=== PATIENT | female | born 1935 | race Caucasian/White ===

== ENCOUNTER → 2018-01-08 13:06 | Outpatient (CLI) | payer MEDICARE, MEDICAID, SELFPAY ==
[2018-01-08 14:14] LABS: Basophils % 0.6 % (0.1-2.0); Eosinophils # 0.2 K/mm3 (0.0-0.4); Eosinophils % 2.9 % (0.1-12.0); Hematocrit 37.9 % (37.0-47.0); Hemoglobin 12.4 g/dL (12.2-16.2); Lymphocytes # 2.7 K/mm3 (0.7-4.5); Lymphocytes % 34.5 K/mm3 (10-50); Mean Corpuscular HGB Conc 32.9 g/dL (31.8-35.4); Mean Corpuscular Volume 88.4 fl (81-99); Mean Platelet Volume 7.4 fl (7.4-10.4); Monocytes # 0.6 K/mm3 (0.1-1.0); Monocytes % 7.9 % (1.7-9.3); Neutrophils # 4.2 K/mm3 (1.8-7.8); Neutrophils % 54.2 % (37.0-80.0); Platelet Count 367 K/mm3 (142-424); Red Blood Count 4.29 M/mm3 (4.20-5.40); Red Cell Distribution Width 13.2 % (11.5-17.5); White Blood Count 7.8 K/mm3 (4.8-10.8)
[2018-01-08 20:52] LABS: Alanine Aminotransferase 15 U/L (12-78); Albumin Level 3.8 gm/dL (3.4-5.0); Albumin/Globulin Ratio 1.2 (1.1-1.8); Alkaline Phosphatase 59 U/L (46-116); Anion Gap 6.1 mEq/L (5-15); Bilirubin,Total 0.3 mg/dL (0.2-1.0); Blood Urea Nitrogen 12 mg/dL (7-18); Calcium 8.9 mg/dL (8.5-10.1); Carbon Dioxide 31 mmol/L (21.0-32.0); Chloride 98 mmol/L (98-107); Creatinine,Serum 0.89 mg/dL (0.55-1.02); Estimated Glomerular Filt Rate 61 ml/min (>60); GFR (African American) 74 ML/MIN (>60); Globulin 3.3 gm/dl (1.3-3.2); Glucose 99 mg/dL (74-106); Sodium 131 mmol/L (136-145); Total Protein,Serum 7.1 gm/dL (6.4-8.2)
[2018-01-08 20:59] LABS: Aspartate Amino Transferase 15 U/L (15-37); Potassium 4.1 mmoL/L (3.5-5.1)
== END ==
PROVIDERS: PCP Internal Medicine; Visit Provider Internal Medicine Cardiovascular Disease
DX: I50.9 Heart failure, unspecified (principal)
CPT/HCPCS: 36415; 80053; 83880; 85025

== ENCOUNTER → 2018-08-29 08:03 | Outpatient (CLI) | payer MEDICARE, MEDICAID, SELFPAY ==
--- NOTE | 2018-08-29 08:15 | XR_ITS ---
XR ankle LT min 3V HISTORY: ITS.REASON: BILAT ANKLE AND FOOT PAIN ORDERING PHYSICIAN: Rajinder Martinez PATIENT AGE: 83 years Comparison: None FINDINGS: No fracture or dislocation. No lytic or blastic change. There is normal mineralization.. The joint spaces are well-preserved. No significant degenerative/arthritic changes. No erosive changes evident. IMPRESSION: Negative ankle, no acute finding
--- NOTE | 2018-08-29 08:15 | XR_ITS ---
XR ankle RT min 3V HISTORY: ITS.REASON: BILAT ANKLE AND FOOT PAIN ORDERING PHYSICIAN: Rajinder Martinez PATIENT AGE: 83 years Comparison: None FINDINGS: No fracture or dislocation. No lytic or blastic change. There is normal mineralization.. The joint spaces are well-preserved. No significant degenerative/arthritic changes. No erosive changes evident. IMPRESSION: Negative ankle, no acute finding
--- NOTE | 2018-08-29 08:15 | XR_ITS ---
XR foot LT min 3V HISTORY: ITS.REASON: BILAT ANKLE AND FOOT PAIN ORDERING PHYSICIAN: Rajinder Martinez PATIENT AGE: 83 years COMPARISON: None FINDINGS: No fracture or dislocation. Decreased density is present involving the neck of the talus with poor definition of the bony cortex which represent a lytic lesion of the anterior neck of the talus. There is low bone density. This could be a function of osteopenia. CT or MRI may be of further value. There is pes planus. IMPRESSION: Possible lytic lesion of the neck of the talus. Consider CT or MRI for further evaluation otherwise negative
--- NOTE | 2018-08-29 08:15 | XR_ITS ---
XR foot RT min 3V HISTORY: ITS.REASON: BILAT ANKLE AND FOOT PAIN ORDERING PHYSICIAN: Rajinder Martinez PATIENT AGE: 83 years COMPARISON: None FINDINGS: No fracture or dislocation. No lytic or blastic change. There is normal mineralization.. The joint spaces are well-preserved. No significant degenerative/arthritic changes. No erosive changes evident. IMPRESSION: Negative, no acute finding
== END ==
PROVIDERS: PCP Internal Medicine; Visit Provider Internal Medicine
DX: M79.672 Pain in left foot (principal); M79.671 Pain in right foot; M25.572 Pain in left ankle and joints of left foot; M25.571 Pain in right ankle and joints of right foot
CPT/HCPCS: 73610; 73630

== ENCOUNTER → 2018-09-11 13:56 | Outpatient (CLI) | payer MEDICARE, MEDICAID, SELFPAY ==
--- NOTE | 2018-09-11 14:06 | CT_ITS ---
CT foot LT wo con INDICATION: Left foot pain, abnormal radiograph with possible lytic lesion of the talus ITS.REASON: LT FOOT PAIN ORDERING PHYSICIAN: Rajinder Martinez PATIENT AGE: 83 years COMPARISON: None TECHNIQUE: Axial images are obtained without contrast. Sagittal and coronal reformatted images are reviewed as well. All CT scans at the facility use one or more dose reduction, viz: automated exposure control, ma/kV adjustment per patient size (including targeted exams where dose is matched to indication, i.e. head), or iterative reconstruction technique. FINDINGS: Previous radiograph suggesting an area of Y cysts along the neck of the talus anteriorly. There is diffuse patchy decreased density all of the tarsal bones as well as the distal tibia and fibula with a few scattered focal areas of decreased intramedullary density and decreased density in the subcortical regions of the distal tibia and fibula. Focal decreased subcortical density is also noted involving the anterior neck of the talus in the lateral aspect of the talus corresponding to the radiographic abnormality. This however appears to be more of a diffuse process as opposed to a focal solitary abnormality. No soft tissue masses. No acute fracture or dislocation. There is diffuse prominence of the bone trabecula. There is mild edema both medially and laterally at the ankle and hindfoot. IMPRESSION: Diffuse patchy low bone density is well scattered areas of subcortical lucency. This is consistent with diffuse osteopenia/osteoporosis. Differential diagnosis would include complex regional pain syndrome/reflex sympathetic dystrophy and multiple myeloma. Three-phase bone scan may better evaluate for possibility of complex regional pain syndrome if clinically desired
== END ==
PROVIDERS: PCP Internal Medicine; Visit Provider Internal Medicine
DX: M79.672 Pain in left foot (principal)
CPT/HCPCS: 73700

== ENCOUNTER → 2018-09-19 08:46 | Outpatient (CLI) | payer MEDICARE, MEDICAID, SELFPAY ==
--- NOTE | 2018-09-19 08:53 | XR_ITS ---
XR DEXA axial skeleton HISTORY: ITS.REASON: OSTEOPOROSIS ORDERING PHYSICIAN: Rajinder Martinez PATIENT AGE: 83 years COMPARISON: None FINDINGS: The BMD measured at the left femoral neck is 0.767 g/cm squared with a T score of -1.9. This is considered Osteopenic according to the World Health Organization criteria. Fracture risk is Moderate. Treatment is advised. IMPRESSION: Osteopenia with moderate fracture risk. Treatment is advised. Recommend follow-up exam September 2020
== END ==
PROVIDERS: PCP Internal Medicine; Visit Provider Internal Medicine
DX: M81.0 Age-related osteoporosis without current pathological fracture (principal)
CPT/HCPCS: 77080

== ENCOUNTER 2018-10-21 09:40 | Outpatient (CLI) | payer MEDICARE, MEDICAID, SELFPAY ==
[2018-10-21 09:40] VITALS: BMI 26.9
[2018-10-21 10:07] LABS: Albumin Level 3.5 gm/dL (3.4-5.0); Calcium 8.7 mg/dL (8.5-10.1); Creatinine Clearance Estimated 49 mL/min (50-200); Creatinine,Serum 0.96 mg/dL (0.55-1.02); Estimated Glomerular Filt Rate 56 ml/min (>60); GFR (African American) 67 ML/MIN (>60)
[2018-10-21 10:33] VITALS: BP 122/51; PULSE 51; RESP 18; TEMP 36.4; O2SAT 96
[2018-10-21 10:55] VITALS: BP 119/60; PULSE 54; RESP 18; O2SAT 97
== END 2018-10-21 10:55 | disposition home or self-care (01) ==
LOC: INF 09:40
PROVIDERS: Visit Provider Internal Medicine
DX: M81.0 Age-related osteoporosis without current pathological fracture (principal)
CPT/HCPCS: 82040; 82310; 82565; 96374; J3489

== ENCOUNTER → 2018-12-25 11:16 | Outpatient (CLI) | payer MEDICARE, MEDICAID, SELFPAY ==
--- NOTE | 2018-12-25 11:24 | XR_ITS ---
PROCEDURE: XR MULTIPLE SPINE 6+V Mom CLINICAL INDICATION: CERVICALGIA, LUMBAGO WITH SCIATICA COMPARISON: No exams were available for comparison FINDINGS: Cervical spine: AP lateral oblique open-mouth views of the cervical spine show multilevel cervical spondylosis with degenerative disc disease at C3-C4 C4-C5 C5-C6 and C6-C7. Multilevel facet hypertrophy with sclerosis. Left foraminal narrowing at C5-C6 and C6-C7. No acute fracture or dislocation. Lumbar spine: Degenerate disc disease T11-T12, T12-L1, L1-L2, and L2-L3 as well as L4-L5. 3 mm anterolisthesis L4 on L5. Facet arthritic changes L4-L5 and S1. No fracture or dislocation. Incidental vascular calcifications. IMPRESSION: Degenerative changes of the cervical and lumbar spine as described above Dictated by: Sulaiman Nina MD 12/25/2018 18:32 Signed by: <Electronically signed by Sulaiman Nina MD in [facility]> 12/25/2018 18:32
== END ==
PROVIDERS: PCP Internal Medicine; Visit Provider Internal Medicine
DX: M54.2 Cervicalgia (principal); M54.41 Lumbago with sciatica, right side
CPT/HCPCS: 72084

== ENCOUNTER 2019-10-31 11:21 | Emergency (ER) | payer MEDICARE, OTHER, SELFPAY ==
[2019-10-31 11:23] VITALS: BP 157/55; PULSE 62; RESP 18; O2SAT 94; BMI 30.7
--- NOTE | 2019-10-31 11:38 | CT_ITS ---
PROCEDURE: CT CERVICAL SPINE WO CON CLINICAL INDICATION: pain COMPARISON: No exams were available for comparison TECHNIQUE: Axial images obtained with sagittal and coronal reformats. All CT scans at the facility use one or more dose reduction, viz: automated exposure control, ma/kV adjustment per patient size (including targeted exams where dose is matched to indication, i.e. head), or iterative reconstruction technique. Axial spiral CT scanning performed of the cervical spine beginning at the base of the skull and continuing to the upper T-spine. 3-D multiplanar reconstruction with 3-D manipulation of volumetric data set in image rendering was completed by the radiologist and/or technologist with the supervision of the radiologist on independent workstation. FINDINGS: No fracture nor subluxation is evident. Normal prevertebral soft tissues. There is normal curvature and alignment. There is generalized osteopenia. Mild multilevel disc space narrowing is seen. The spinal canal is normal in size throughout. There is no significant neural foraminal narrowing on either side. There is no abnormal disc protrusion. IMPRESSION: Mild multilevel degenerate changes of the cervical spine not unexpected for the patient's age Dictated by: Dr. Garth Ford MD 10/31/2019 12:[address] Garth Ford MD in [facility] 10/31/2019 12:24
--- NOTE | 2019-10-31 11:38 | CT_ITS ---
PROCEDURE: CT HEAD/BRAIN W CON CLINICAL INDICATION: Head and neck pain COMPARISON: [facility] CT HEAD W/O CONTRAST from 01/06/2015 TECHNIQUE: IV Contrast: 100ML OPITRAY 320 Axial images obtained. All CT scans at the facility use one or more dose reduction, viz: automated exposure control, ma/kV adjustment per patient size (including targeted exams where dose is matched to indication, i.e. head), or iterative reconstruction technique. FINDINGS: No midline shift, mass effect, intracranial hemorrhage, hydrocephalus, or extra-axial fluid collection is evident. There is mild ventriculomegaly. Sylvian fissures and cortical sulci are mildly prominent. There are periventricular hypodensities consistent with chronic ischemic white matter changes. The calvarium has an unremarkable appearance. The mastoids are clear bilaterally and both internal auditory canals appear normal. IMPRESSION: Findings of age-appropriate cortical atrophy and mild chronic ischemic white matter changes, no acute intracranial pathology noted Dictated by: Dr. Garth Ford MD 10/31/2019 12:[address] Garth Ford MD in [facility] 10/31/2019 12:18
[2019-10-31 11:47] LABS: Basophils % 0.6 % (0.1-2.0); Eosinophils # 0.2 K/mm3 (0.0-0.4); Eosinophils % 2.7 % (0.1-12.0); Hematocrit 35.2 % (37.0-47.0); Hemoglobin 11.7 g/dL (12.2-16.2); Lymphocytes # 1.9 K/mm3 (0.7-4.5); Lymphocytes % 33.8 % (10-50); Mean Corpuscular HGB Conc 33.4 g/dL (31.8-35.4); Mean Corpuscular Hemoglobin 30.2 pg (27.0-31.2); Mean Corpuscular Volume 90.4 fl (81-99); Mean Platelet Volume 8.8 fl (7.4-10.4); Monocytes # 0.5 K/mm3 (0.1-1.0); Monocytes % 8.6 % (1.7-9.3); Neutrophils % 54.3 % (37.0-80.0); Platelet Count 278 K/mm3 (142-424); Red Blood Count 3.89 M/mm3 (4.20-5.40); Red Cell Distribution Width 13.4 % (11.5-17.5); White Blood Count 5.5 K/mm3 (4.8-10.8)
[2019-10-31 11:48] VITALS: BP 157/55; PULSE 54; O2SAT 94
--- NOTE | 2019-10-31 11:51 | HMH.EDNECK ---
ED Disposition Clinical Impression: Neck pain on right side, Cervical spondylosis Disposition: Home, Self-Care Condition on Discharge: Good Instructions: DI for Neck Pain Additional Instructions: use meds and see pcp for follow up Prescriptions: predniSONE [Prednisone 20mg Tab] 20 mg PO BID #10 tab Prescription Printed Acetaminophen with Codeine [Tylenol with Codeine #3 tablet] 1 tab PO TID PRN #10 tab PRN Reason: Moderate To Severe Pain Prescription Printed Referrals: Rajinder Martinez [Primary Care Provider] - - Critical Care Critical Care Time: No Attestation: On 10/31/19, the high probability of a clinically significant, sudden or life threatening deterioration of the following system(s) required my full and direct attention, intervention and personal management. The time I documented below is in addition to time spent performing reported procedures but includes the following listed in this critical care notation. Medical Decision Making - Medical Records Medical records reviewed: Yes: I reviewed the patient's medical records. - Ruben Inquiry Pt receiving controlled substance: No Vital Signs: 10/31/19 11:23 10/31/19 11:48 10/31/19 11:53 Pulse Rate [Radial] 62 54 L 52 L Respiratory Rate 18 Blood Pressure [Right Arm] 157/55 H 157/55 H 130/52 L Blood Pressure Mean [Right Arm] 89 89 78 Blood Pressure Source [Right Arm] Automatic Cuff Automatic Cuff Automatic Cuff Blood Pressure Position [Right Arm] Sitting Sitting Sitting 02 Sat by Pulse Oximetry 94 L 94 L 95 Oxygen Delivery Method Room Air Room Air Room Air 10/31/19 12:32 Pulse Rate [Radial] 51 L Respiratory Rate Blood Pressure [Right Arm] 139/65 Blood Pressure Mean [Right Arm] 89 Blood Pressure Source [Right Arm] Automatic Cuff Blood Pressure Position [Right Arm] Sitting 02 Sat by Pulse Oximetry 96 Oxygen Delivery Method Room Air - Lab Data Lab results reviewed: Yes: I reviewed the patient's lab results. Lab Results 10/31/19 11:43: WBC 5.5, RBC 3.89 L, Hgb 11.7 L, Hct 35.2 L, MCV 90.4, MCH 30.2, MCHC 33.4, RDW 13.4, Plt Count 278, MPV 8.8, Neut % (Auto) 54.3, Lymph % (Auto) 33.8, Garza % (Auto) 8.6, Eos % (Auto) 2.7, Baso % (Auto) 0.6, Neut # (Auto) 3.0, Lymph # (Auto) 1.9, Garza # (Auto) 0.5, Eos # (Auto) 0.2, Baso # (Auto) 0.0 10/31/19 11:43: Sodium 134 L, Potassium 4.1, Chloride 100, Carbon Dioxide 30, Anion Gap 8.1, BUN 14, Creatinine 0.90, Estimated Creat Clear 48, Estimated GFR 60, Est GFR ( Amer) 72, Glucose 118 H, Calcium 8.5, Total Bilirubin 0.4, AST 23, ALT 12, Alkaline Phosphatase 41, Total Protein 6.8, Albumin 3.9, Globulin 2.9, Albumin/Globulin Ratio 1.3 10/31/19 11:43: ESR 31 H Result diagrams: 10/31/19 11:43 10/31/19 11:43 Orders (Tests/Meds): ED MEDICATIONS Generic Name Dose Route Start Last Admin Trade Name Carmina PRN Reason Stop Dose Admin Ketorolac Tromethamine 30 mg 10/31/19 12:49 Toradol 30mg/Ml Vial IV 10/31/19 12:50 ONCE ONE Methylprednisolone Sodium Succinate 125 mg 10/31/19 12:49 Solu-Medrol 125mg/2ml Vial IV 10/31/19 12:50 ONCE ONE - CT Data CT Scan: Head, C-Spine Time Received: 12:[address] Reviewed: Yes: I have viewed the radiologist's interpretation Preliminary Findings: Abnormal (see report ) Neck Pain/Injury HPI - General Chief Complaint: Headache Stated Complaint: RIGHT SIDE HEAD ACHE AND NECK PAIN Time Seen by Provider: 10/31/19 11:40 Mode of Arrival: Ambulatory Source of Information: Patient, Relative, Medical Record Limitations: No Limitations Description of Symptoms (Recalled from ER Triage Doc. by RN): Complaint of right sided neck and head pain. States this has been going on for 2 months and she has seen Dr. Martinez - History of Present Illness HPI Narrative: atraumatic rt sided neck pain - over the last few months w/o fever and no rash MD complaint: neck pain Onset (ago): week(s) Place: home Radiation: right lateral Severity: moderate
[2019-10-31 11:53] VITALS: BP 130/52; PULSE 52; O2SAT 95
[2019-10-31 11:53] LABS: Chloride 100 mmol/L (98-107); Potassium 4.1 mmoL/L (3.5-5.1); Sodium 134 mmol/L (136-145)
[2019-10-31 11:56] LABS: Alanine Aminotransferase 12 U/L (12-78); Albumin Level 3.9 g/dl (3.5-5.0); Albumin/Globulin Ratio 1.3 (1.1-1.8); Alkaline Phosphatase 41 U/L (38-126); Anion Gap 8.1 mEq/L (5-15); Aspartate Amino Transferase 23 U/L (14-36); Bilirubin,Total 0.4 mg/dl (0.2-1.3); Blood Urea Nitrogen 14 mg/dl (7-17); Calcium 8.5 mg/dl (8.4-10.2); Carbon Dioxide 30 mmol/L (22.0-30.0); Creatinine Clearance Estimated 48 mL/min (50-200); Estimated Glomerular Filt Rate 60 ml/min (>60); GFR (African American) 72 ML/MIN (>60); Globulin 2.9 g/dL (1.3-3.2); Glucose 118 mg/dl (74-100); Total Protein,Serum 6.8 g/dl (6.3-8.2)
--- NOTE | 2019-10-31 12:00 | PC.NURSE ---
PT to rad
[2019-10-31 12:10] LABS: Erythrocyte Sedimentation Rate 31 mm/hr (0-30)
[2019-10-31 12:32] VITALS: BP 139/65; PULSE 51; O2SAT 96
[2019-10-31 13:06] VITALS: BP 128/51; PULSE 52; O2SAT 96
[2019-10-31 13:11] VITALS: BP 128/51; PULSE 52; RESP 18; TEMP 36.8; O2SAT 96
== END 2019-10-31 13:14 | disposition home or self-care (01) ==
PROVIDERS: Emergency Medicine; Emergency Provider Family Medicine; PCP Internal Medicine
DX: M47.812 Spondylosis without myelopathy or radiculopathy, cervical region (principal); M54.2 Cervicalgia; Z79.899 Other long term (current) drug therapy; Z88.1 Allergy status to other antibiotic agents; Z88.8 Allergy status to other drugs, medicaments and biological substances; Z88.0 Allergy status to penicillin
CPT/HCPCS: 70460; 72125; 80053; 85025; 85651; 96374; 96375; 99284

== ENCOUNTER → 2019-11-04 10:38 | Outpatient (CLI) | payer MEDICARE, OTHER, SELFPAY ==
--- NOTE | 2019-11-04 10:43 | CA_ITS ---
APPROVED REPORT Supervisor Instrument Repair: Francesca Hart RVT Laterality: Bilateral Study Quality: Good Indications: Dizziness and Vertigo Risk Factors Hypertension: Hyperlipidemia Smoking Doppler Spectral Velocity Analysis ECA (R) 109.00/8.20 cm/s ECA (L) 116.30/11.80 cm/s dICA (R) 95.00/20.50 cm/s dICA (L) 102.70/26.40 cm/s Deborah (R) 91.00/21.40 cm/s Deborah (L) 83.70/25.00 cm/s pICA (R) 79.20/21.80 cm/s pICA (L) 68.10/15.60 cm/s dCCA (R) 64.20/11.10 cm/s dCCA (L) 80.90/15.00 cm/s pCCA (R) 91.20/10.30 cm/s pCCA (L) 108.70/19.80 cm/s Vert (R) -47.50/ cm/s Vert (L) 87.20/19.10 cm/s ICA/CCA 1.48 ICA/CCA 1.27 Findings Study suggests less than 20% stenosis of the bilateral internal cartoid arteries. Antegrade flow seen in the left vertebral artery. Retrograde flow seen right vertebral artery. Conclusion No increased velocities to suggest hemodynamically significant stenosis in either internal carotid artery. Electronically signed by : Sulaiman Nina MD 11/06/2019 15:00:06
== END ==
PROVIDERS: PCP Internal Medicine; Visit Provider Internal Medicine
DX: R42 Dizziness and giddiness (principal); R51 Headache
CPT/HCPCS: 93880

== ENCOUNTER → 2019-12-20 09:47 | Outpatient (CLI) | payer MEDICARE, OTHER, SELFPAY | PROVIDERS: PCP Internal Medicine; Visit Provider Internal Medicine | DX: R42 Dizziness and giddiness (principal); R55 Syncope and collapse | CPT/HCPCS: 93225; 93226 ==

== ENCOUNTER → 2019-12-24 13:52 | Outpatient (CLI) | payer MEDICARE, OTHER, SELFPAY ==
--- NOTE | 2019-12-24 13:55 | CA_ITS ---
APPROVED REPORT EXAM: Comprehensive 2D, Doppler, and color-flow Echocardiogram Psychiatric Mental Health Nurse: Leana Hanley RDCS Ht: 5 ft 1 in Wt: 151lbs BSA: 1.68 BP: 110/68 mmHg Indications: SYNCOPE,CAD,HTN 2D Dimensions LVOT 1.39 cm (M/F) 1.5-2.5 M-Mode Dimensions RVDd 2.32 cm (0.9-2.6) LVDd 5.59 cm (3.5-5.7) LVDs 4.48 cm (3.5-5.7) IVSd 0.72 cm (0.6-1.1) PWd 0.68 cm (0.6-1.1) EF (Teich) 40.20% FS 19.90% EDV (Teich) 153.00 mL ESV (Teich) 91.50 mL LV Diastology E/A Ratio 0.65 Mitral Valve MV A Velocity 72.00 (40-130 cm/s) Left Ventricle Left atrium is mildly enlarged, left ventricle is normal size, mild concentric left ventricular hypertrophy, visually estimated ejection fraction 55% with no regional wall motion abnormality, grade 1 diastolic dysfunction seen without tissue Doppler evidence of raise left atrial pressure. Right Ventricle Right atrium and right ventricle are normal size and contractility. Aortic Valve Aortic valve is thickened and calcified leaflet chordae display good mobility, there is no aortic stenosis or aortic insufficiency. Mitral Valve Mitral valve leaflets are minimally thickened, there is mild mitral regurgitation. Tricuspid Valve Tricuspid valve is grossly normal, there is mild tricuspid regurgitation. Pulmonic Valve Pulmonic valve is poorly visualized. Great Vessels Aortic root is normal size. Pericardium No significant pericardial effusion noted. Conclusion 1. Mildly enlarged left atrium, normal left ventricular size, mild concentric left ventricular hypertrophy, visually estimated ejection fraction 55% with no regional wall motion abnormality, grade 1 diastolic dysfunction seen without tissue Doppler evidence of raise left atrial pressure. 2. Mild mitral and tricuspid regurgitation. 3. No significant pericardial effusion noted. Electronically signed by : Bart Jaeger, 12/25/2019 15:06:12
== END ==
PROVIDERS: PCP Internal Medicine; Visit Provider Internal Medicine
DX: R55 Syncope and collapse (principal); R42 Dizziness and giddiness
CPT/HCPCS: 93306

== ENCOUNTER → 2020-05-18 10:54 | Outpatient (CLI) | payer MEDICARE, OTHER, SELFPAY ==
--- NOTE | 2020-05-18 11:01 | CT_ITS ---
PROCEDURE: CT HEAD/BRAIN WO CON CLINICAL INDICATION: VERTIGO X2 WKS, NAUSEA, HEADACHE COMPARISON: CT CT HEAD/BRAIN W CON from 10/31/2019 TECHNIQUE: Axial images obtained. All CT scans at the facility use one or more dose reduction, viz: automated exposure control, ma/kV adjustment per patient size (including targeted exams where dose is matched to indication, i.e. head), or iterative reconstruction technique. FINDINGS: No midline shift, mass effect, intracranial hemorrhage, hydrocephalus, or extra-axial fluid collection is evident. There is generalized atrophy with hypoattenuation of the periventricular white matter consistent with microangiopathic changes. The ventricles are slightly prominent but may be due to underlying volume loss/atrophy overall not significantly changed. The calvarium has an unremarkable appearance. No mastoid effusion. No sinus air-fluid level. IMPRESSION: No acute intracranial finding Dictated by: Sulaiman Nina MD 05/18/2020 11:59 Sulaiman Nina MD in [facility] 05/18/2020 11:59
== END ==
PROVIDERS: PCP Internal Medicine; Visit Provider Internal Medicine
DX: R42 Dizziness and giddiness (principal); R11.0 Nausea; R51.9 Headache, unspecified
CPT/HCPCS: 70450

== ENCOUNTER → 2020-05-28 10:34 | Outpatient (CLI) | payer MEDICARE, OTHER, SELFPAY ==
[2020-05-28 11:00] LABS: Anion Gap 9.5 mEq/L (5-15); Blood Urea Nitrogen 27 mg/dl (7-17); Calcium 9.6 mg/dl (8.4-10.2); Carbon Dioxide 35 mmol/L (22.0-30.0); Chloride 99 mmol/L (98-107); Estimated Glomerular Filt Rate 53 ml/min (>60); GFR (African American) 64 ML/MIN (>60); Glucose 95 mg/dl (74-100); Potassium 4.5 mmoL/L (3.5-5.1); Sodium 139 mmol/L (136-145)
== END ==
PROVIDERS: Visit Provider Internal Medicine
DX: E87.1 Hypo-osmolality and hyponatremia (principal)
CPT/HCPCS: 80048

== ENCOUNTER 2020-05-30 06:19 | Emergency (ER) | payer MEDICARE, OTHER, SELFPAY ==
[2020-05-30 06:20] VITALS: BP 205/84; PULSE 71; RESP 16; TEMP 37.1; O2SAT 95; BMI 26.6
[2020-05-30 06:27] VITALS: BMI 26.5
--- NOTE | 2020-05-30 06:28 | CT_ITS ---
PROCEDURE: CT THORACIC SPINE WO CON Referring Doctor: Raymond Shay Patient Age:85Y CLINICAL HISTORY: back pain,no injury COMPARISON: [facility] CT CHEST W/O CONTRAST from 04/09/2017 TECHNIQUE: Axial images obtained with sagittal and coronal reformats. All CT scans at the facility use one or more dose reduction, viz: automated exposure control, ma/kV adjustment per patient size (including targeted exams where dose is matched to indication, i.e. head), or iterative reconstruction technique. FINDINGS: No acute fracture but no lesion. Diffuse demineralization. Early degenerative changes T-spine with some disc space narrowing at several levels: There is subtle disc space narrowing with mild sclerotic changes about the disc at mid thoracic spine this is of noted mainly at T8-9 disc and to lesser degree T6/7, T7/8. Minimal facet arthropathy at the lower T-spine otherwise noted . Some degenerative changes are actually more evident at the lower C-spine manifest by facet arthropathy, hypertrophy lower C-spine and mild cervical spondylosis C5-C6 Minimal Schmorl's node inferior endplate T9, T11, T12; and superior endplate T11. 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 Also note appearance is unchanged since 2017 CT chest No destructive or metastatic osseous lesions seen at spine or ribs adjacent to the spine. Again incidentally note left hilar mass with generous mediastinal adenopathy of compatible with developing lung neoplasm -See CT chest for this detailed discussion regarding these findings. IMPRESSION: No acute fracture or findings thoracic spine. No osseous lesions. No osseous metastatic disease evident to the thoracic spine Diffuse demineralization . Mild degenerative changes T-spine. Mediastinal adenopathy with prominent left hilar mass-this is further described on CT chest report Dictated by: Ronak Sarmiento MD 05/30/2020 21:31 Ronak Sarmiento MD in [place] 05/30/2020 21:31
--- NOTE | 2020-05-30 06:28 | CT_ITS ---
PROCEDURE: CT LUMBAR SPINE WO CON Referring Doctor: Raymond Shay Patient Age:85Y CLINICAL HISTORY: back pain,no injury COMPARISON: CT ABDPELW CT ABD PELVIS W/ CONTRAST from 01/23/[address] ABDOMEN PELVIS WO CON from 05/30/2020 TECHNIQUE: No IV contrast Helical axial images obtained with sagittal and coronal reformats. All CT scans at the facility use one or more dose reduction, viz: automated exposure control, ma/kV adjustment per patient size (including targeted exams where dose is matched to indication, i.e. head), or iterative reconstruction technique. FINDINGS: . no acute fracture findings but no focal destructive process or lesion of no osseous metastatic disease identified. Other are developing degenerative changes lumbar spine.:. L5/S1 disc intact with scant central disc bulge.. A generous facet hypertrophy-arthropathy L4/5. Prominent facet hypertrophy with mild, trace degenerative anterior listhesis of L4 on L5. 2.5 mm. Disc spaces fairly well maintained with only slight narrowing posteriorly L3/4. Mild disc space narrowing posteriorly.. Foraminal disc bulge encroach upon both foramen. Mild facet how arthropathy.. Of moderate bilateral foraminal encroachment from above features. The L2/3. Degenerative disc space narrowing degenerative retrolisthesis of L2 on L3, nearly 4 mm. Diffuse disc bulge. Mild facet hypertrophy. The combination these features yields a borderline/mild spinal stenosis L1/2. Disc space narrowing posteriorly but disc intact with no significant bulge. At T12/L1 and T11/12-disc intact with only scant narrowing.. The foramen widely patent No perispinal mass. Left adrenal nodule again noted of for the most part measuring fat density in of basically stable since 2017 and thus of may merely be a nonfunctioning nodulebut will require follow-up pelvic in this patient. It measures up to 17.5 mm Left renal cyst again observed measuring nearly the the 3.5 cm. There was present in 2016 IMPRESSION: Lumbar spine. No acute fracture or findings. No evidence of metastatic disease Degenerative changes lumbar spine as detailed in text:. . L2/3 most evident disc space narrowing at L2/3-with mild degenerative retrolisthesis along with disc bulge. Together features the yields borderline-age mild spinal stenosis and moderate bilateral foraminal encroachment. . L4/5. Mild disc bulge most evident towards left foramen along with the mild degenerative listhesis due the prominent facet hypertrophy. Combination of features yields borderline spinal stenosis. ... L3/4 foraminal disc bulge with moderate bilateral foraminal encroachment Dictated by: Ronak Sarmiento MD 05/30/2020 10:51 Ronak Sarmiento MD in [place] 05/30/2020 10:51
--- NOTE | 2020-05-30 06:28 | XR_ITS ---
PROCEDURE: XR CHEST 2V Referring Doctor: Raymond Shay Patient Age:85Y CLINICAL HISTORY: back pain, sometimes in shoulder blades COMPARISON: CR CXR1 CHEST-PORTABLE from 09/13/2012 CR CXR CHEST(2 VIEWS-NOT PORTABLE) from 12/21/2013 CR CXR1 CHEST-PORTABLE from 01/23/[address] [facility] [address] CHEST W/O CONTRAST from 04/09/[address] CHEST WO CON from 05/30/2020 FINDINGS: PA and lateral chest performed and compared to January 2016 chest film. On today's study we see enlargement and increased density left rigo with lobulated mass extending laterally from the left rigo into the left mid lung. 3.5 ovoid masses seen at the left mid lung associated with this left hilar mass. Just inferior to this is a 3 point 2 cm ovoid density which the reflects associated lesion or metastatic deposit. On lateral view there is also a just over 3 cm mass anterior to the left rigo. Right lung blunting right CP angle the the which likely reflects some minor chronic changes with similar appearance 2013. The There is mediastinal adenopathy with a the enlarged a node or mass in the region the azygos as well as fullness right paratracheal region reflecting adenopathy here. The The right rigo appears satisfactory. Chest wall appears satisfactory T-spine with mild degenerative changes but no obvious lesions but the IMPRESSION: Left hilar mass with associated masses left mid lung. . Associated mediastinal adenopathy also noted The CT warranted to further evaluate this apparent lung neoplasm. Dictated by: Ronak Sarmiento MD 05/30/2020 16:35 Ronak Sarmiento MD in [facility] 05/30/2020 16:35
--- NOTE | 2020-05-30 06:28 | CT_ITS ---
Procedure: CT ABDOMEN PELVIS WO CON Referring Doctor: Raymond Shay Patient Age:85Y CLINICAL INDICATION: back pain,no injury Left adrenal nodule measuring up to 17 mm COMPARISON: CT ABDPELW CT ABD PELVIS W/ CONTRAST from 01/23/[address] [address] CHEST W/O CONTRAST from 04/09/[address] LUMBAR SPINE WO CON from 05/30/2020 TECHNIQUE: Axial images obtained with sagittal and coronal reformats. All CT scans at the facility use one or more dose reduction, viz: automated exposure control, ma/kV adjustment per patient size (including targeted exams where dose is matched to indication, i.e. head), or iterative reconstruction technique. FINDINGS: Lower thorax: No acute finding. Linear scarring with slightly nodular component medially most likely reflects area of nodular scarring. Less likely metastatic disease from lung cancer evident more superiorly as discussed on CT chest report. ABDOMEN: Liver: Multiple common numerous low-density lesions within the liver on this noncontrast study compatible with multiple metastatic foci. One of the larger areas seen within the left lobe the measures up to 22 mm.. Numerous areas seen elsewhere throughout the right lobe, left lobe and junction of right and left lobe. Gallbladder: Nondistended. No radio opaque stones. Pancreas: Unremarkable with no masses o. No cyst or the the inflammatory changes Spleen: unremarkable normal size granulomatous calcifications LEFT ADRENAL nodule measures up to 17.5 mm x 15 mm. It continues to measure low-density for the most part (10hu) and has been present since 2016 exam with no significant progression or enlargement. However given the chest abnormalities distal warrants ongoing follow-up on to watch for change right adrenal.-stable unremarkable ---- tract --- Kidneys/ureters: . Right kidney unremarkable Left kidney-3.5 cm cyst at posterior midportion left kidney is been present since 2016 with no significant change-only perhaps 2 mm larger since 2016. Atherosclerotic calcification noted just anterior to this cyst Both ureters unremarkable PELVIS: hysterectomy. Uterus removed. No adnexal masses. No free fluid pelvis Urinary bladder. No stones evident. Mild diffuse thickening the bladder wall could reflect cystitis.. The the -GI tract--no acute findings Small sliding hiatal hernia more evident previously studies . Stomach upper normal wall thickness at the stomach appear stable most likely reflecting lack of distension. Small bowel: Nondistended. No obvious mass or thickening. Scattered air-fluid levels within nondilated small bowel. Large bowel: No significant findings [id number] stool throughout the colon most evident at right colon. Appendix: No evidence of appendicitis, but appendicolith measuring 3 mm transverse 5 mm length is noted midportion appendix, coronal image 31. Peritoneum: No abnormal fluid collections. No obvious inflammatory changes. No free air. Lymph nodes: No enlarged lymph nodes apparent. Vasculature: Diffuse calcification aorta and iliacs. No aneurysm.: No retroperitoneal adenopathy or findings Bones: No acute fracture no focal lesions; no discrete metastatic lesions.. V RC nodes a heterogeneous appearance to the hips and iliac bones but more likely this reflects some aging and degenerative changes or possibly Paget's rather than metastatic disease. Particularly since there is a similar pattern seen on January 2019 CT Degenerative changes at hips and spine. Mild dextroscoliosis lumbar spine. IMPRESSION: 1..Innumerable low-density liver metastatic lesions evident--from the patient's presumptive lung carcinoma 2.. Mild diffuse wall thickening urinary bladder. Davi
--- NOTE | 2020-05-30 06:38 | PC.NURSE ---
urine sent to lab
[2020-05-30 06:43] LABS: Microscopic, Urine URINE MICROSCOPIC (MICROSCOPIC)
[2020-05-30 06:47] LABS: Appearance,Urine CLEAR (Clear); Bilirubin,Urine Negative (Negative); Blood, Urine Negative (Negative); Color,Urine YELLOW (Yellow); Glucose,Urine (UA) Negative (Negative); Ketones,Urine Negative (Negative); Leukocyte Esterase,Urine TRACE (Negative); Nitrate,Urine Negative (Negative); Protein,Urine Negative (Negative); Urobilinogen,Urine 0.2 EU/dl (0.2)
[2020-05-30 06:53] LABS: Basophils # 0.1 K/mm3 (0-0.2); Basophils % 0.5 % (0.1-2.0); Eosinophils # 0.3 K/mm3 (0.0-0.4); Eosinophils % 2.2 % (0.1-12.0); Hematocrit 40.9 % (37.0-47.0); Hemoglobin 13.1 g/dL (12.2-16.2); Mean Corpuscular HGB Conc 32.1 g/dL (31.8-35.4); Mean Corpuscular Hemoglobin 28.9 pg (27.0-31.2); Mean Platelet Volume 7.7 fl (7.4-10.4); Monocytes % 6.4 % (1.7-9.3); Neutrophils # 11.8 K/mm3 (1.8-7.8); Platelet Count 342 K/mm3 (142-424); Red Blood Count 4.54 M/mm3 (4.20-5.40); White Blood Count 15.1 K/mm3 (4.8-10.8)
[2020-05-30 06:55] LABS: Bacteria,Urine 1+ /lpf
[2020-05-30 06:56] LABS: MANUAL DIFFERENTIAL MANUAL DIFFERENTIAL (MANUAL DIFF)
[2020-05-30 07:04] LABS: Amylase 65 U/L (30-110); Anion Gap 8.2 mEq/L (5-15); Blood Urea Nitrogen 27 mg/dl (7-17); Calcium 10.1 mg/dl (8.4-10.2); Carbon Dioxide 35 mmol/L (22.0-30.0); Chloride 101 mmol/L (98-107); Creatinine Clearance Estimated 36 mL/min (50-200); Estimated Glomerular Filt Rate 43 ml/min (>60); GFR (African American) 52 ML/MIN (>60); Glucose 170 mg/dl (74-100); Lipase 60 U/L (23-300); Potassium 4.2 mmoL/L (3.5-5.1); Sodium 140 mmol/L (136-145)
[2020-05-30 07:09] LABS: C-Reactive Protein 120.8 mg/L (0-4)
[2020-05-30 07:19] LABS: Erythrocyte Sedimentation Rate 55 mm/hr (0-30)
[2020-05-30 07:20] LABS: Troponin I < 0.01 ng/ml (0.00-0.034)
[2020-05-30 07:24] LABS: Lymphocytes % 16 % (10-50); Monocytes % 1 % (2-9); Neutrophils % 77 % (42-76); Platelet Estimate Normal; RBC Morphology Normal; Total Cells Counted 100
--- NOTE | 2020-05-30 07:29 | PC.NURSE ---
speaking with ANTONY
[2020-05-30 07:47] VITALS: BP 148/68; PULSE 67
--- NOTE | 2020-05-30 07:47 | CT_ITS ---
PROCEDURE: CT CHEST WO CON Referring Doctor: Raymond Shay Patient Age:85Y CLINICAL INDICATION: abnormal chest xray Back pain. Nausea. Abnormal chest x-ray today the COMPARISON: CT ABDPELW CT ABD PELVIS W/ CONTRAST from 01/23/[address] [address] CHEST W/O CONTRAST from 04/09/[address] ABDOMEN PELVIS WO CON from 05/30/2020 CR XR CHEST 2V from 05/30/2020 TECHNIQUE: No IV contrast utilized. Helical axial images obtained with sagittal and coronal reformats. All CT scans at the facility use one or more dose reduction, viz: automated exposure control, ma/kV adjustment per patient size (including targeted exams where dose is matched to indication, i.e. head), or iterative reconstruction technique. FINDINGS: NEDRA:. . Left NEDRA-large bulky left hilar mass compatible with lung carcinoma. This lobulated mass 6 cm wide x 5 cm AP and up to 5 cm height. This mass extends laterally into the left mid lung with a small finger-like extension to the pleura (as seen on coronal image 29, 30.). The mass engulfs the proximal left upper lobe bronchus more so than the lower lobe bronchus. . Right nedra. No adenopathy at right nedra itself but enlarged nodes are seen at mediastinum near base of right nedra . MEDIASTINAL: Prominent bulky pathologic adenopathy throughout the mediastinum associated. . The large node subcarinal region spans up to 4.5 cm transverse maximally x 3 cm AP. . Large bulky confluent nodes nodes along the right paratracheal space and extending towards the precarinal space-with 3.5 cm x 2.5 cm node the right paratracheal space.., axial image 22.. . Enlarged precarinal lymph node enlarged measuring at least 2.66 cm transverse times times 1.2 cm Multiple enlarged nodes AP window also observed extending through the left aspect of the anterior mediastinum and resides just posterior to the sternum. The. LUNGS:. additional separate lung masses identified which reflect associated lesions/metastatic lesions 1. PAULINA separate 3cm AP x 1.1cm hgt pleural based mass left mid lung at anterior aspect PAULINA ( axial/29, sagittal 65 coronal 24.) 2. PAULINA separate 3.2 cm x 1.5cm lobulated ovoid mass left midlung located more inferiorly at PAULINA (coronal image 32, axial image 37.) Also note: 3. Right lower lobe:Note a tiny less than 6 mm nodule (axial image 38, sagittal 31) which was not present on 2017 scan. 4. Right lower lobe. Nonspecific area of density just above right hemidiaphragm. This may reflect some some nodular scarring rather than metastatic lesion.. The nodular component here measuring less than 1cm with linear scarring extending from this. Axial image 50 PLEURAL SPACES: No significant effusion. No evidence of pneumothorax HEART: Upper normal heart size. perhaps mild LAe. No significant pericardial effusion.. Developing coronary artery calcification PULMONARY ARTERIES And Aorta: Normal caliber. The lack of contrast prohibits further internal evaluation I would note the mediastinal adenopathy anteriorly displaces the normal caliber superior SVC. It does not appears severely compressed by CT but this will benefit from clinical consideration and correlation in follow-up . BONY STRUCTURES: No acute bony abnormalities apparent. No osseous metastatic lesions evident.. Mild degenerative changes T-spine. Note significant chest wall lesions or involvement fall LYMPH NODES: No enlarged lymph nodes evident. UPPER ABDOMEN: Metastatic disease the liver. 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 See CT abdomen report . IMPRESSION: 1. Findings compatible Lung Carcinoma until proven otherwise :
--- NOTE | 2020-05-30 08:02 | [facility].EDBACK ---
ED Disposition Clinical Impression: Mass of lung, Lumbar pain, Liver metastases, Renal insufficiency Disposition: Home, Self-Care Condition on Discharge: Good Instructions: DI for Low Back Pain Additional Instructions: call pcp in am and pulmonary Referrals: Rajinder Martinez [Primary Care Provider] - Eduarda Chase MD [Physician] - Keara Rees MD [Staff Physician] - - Critical Care Critical Care Time: No Attestation: On 05/30/20, the high probability of a clinically significant, sudden or life threatening deterioration of the following system(s) required my full and direct attention, intervention and personal management. The time I documented below is in addition to time spent performing reported procedures but includes the following listed in this critical care notation. Medical Decision Making - Medical Records Medical records reviewed: Yes: I reviewed the patient's medical records. - Ruben Inquiry Pt receiving controlled substance: No Vital Signs: 05/30/20 06:20 05/30/20 07:47 Temperature 98.7 F Temperature Source Oral Pulse Rate [Left Radial] 71 67 Respiratory Rate 16 Blood Pressure [Right Arm] 205/84 H 148/68 H Blood Pressure Mean [Right Arm] 124 94 Blood Pressure Source [Right Arm] Automatic Cuff Blood Pressure Position [Right Arm] Sitting Sitting 02 Sat by Pulse Oximetry 95 Oxygen Delivery Method Room Air - Lab Data Lab results reviewed: Yes: I reviewed the patient's lab results. Lab Results 05/30/20 06:00: Total Bilirubin 0.5, Direct Bilirubin 0.4, Conjugated Bilirubin 0.0, Indirect Bilirubin 0.1, Unconjugated Bilirubin 0.1, AST 59 H, ALT 18, Alkaline Phosphatase 62, Total Protein 7.9, Albumin 4.1 05/30/20 06:36: Urine Color Yellow, Urine Appearance Clear, Urine pH 6.0, Ur Specific [place] 1.020, Urine Protein Negative, Urine Glucose (UA) Negative, Urine Ketones Negative, Urine Blood Negative, Urine Nitrate Negative, Urine Bilirubin Negative, Urine Urobilinogen 0.2, Ur Leukocyte Esterase Trace, Urine WBC 3-5, Ur Squamous Epith Cells 5-10, Urine Bacteria 1+ 05/30/20 06:45: WBC 15.1 H, RBC 4.54, Hgb 13.1, Hct 40.9, MCV 90.0, MCH 28.9, MCHC 32.1, RDW 14.0, Plt Count 342, MPV 7.7, Neut % (Auto) 78.0, Lymph % (Auto) 13.0, Frio % (Auto) 6.4, Eos % (Auto) 2.2, Baso % (Auto) 0.5, Neut # (Auto) 11.8 H, Lymph # (Auto) 2.0, Frio # (Auto) 1.0, Eos # (Auto) 0.3, Baso # (Auto) 0.1, Total Counted 100, Neutrophils % (Manual) 77 H, Band Neutrophils % 6.0, Lymphocytes % (Manual) 16, Monocytes % (Manual) 1 L, Platelet Estimate Normal, RBC Morphology Normal, ESR 55 H 05/30/20 06:45: Sodium 140, Potassium 4.2, Chloride 101, Carbon Dioxide 35 H, Anion Gap 8.2, BUN 27 H, Creatinine 1.20 H, Estimated Creat Clear 36, Estimated GFR 43 L, Est GFR ( Amer) 52 L, Glucose 170 H, Calcium 10.1, Troponin I < 0.01, C-Reactive Protein 120.8 H, Amylase 65, Lipase 60 Result diagrams: 05/30/20 06:45 05/30/20 06:45 Orders (Tests/Meds): ED MEDICATIONS Discontinued Medications Generic Name Dose Route Start Last Admin Trade Name Carmina PRN Reason Stop Dose Admin Morphine Sulfate 2 mg 05/30/20 08:04 05/30/20 08:05 Morphine 2mg/Ml Syringe IV 05/30/20 08:05 2 mg ONCE ONE Administration Ondansetron HCl 4 mg 05/30/20 08:04 05/30/20 08:05 Ondansetron 4mg/2ml Vial IV 05/30/20 08:05 4 mg ONCE ONE Administration ORDERS Category Date Time Status CT abdomen pelvis wo con Stat Cat Scan 05/30/20 06:[address] chest wo con Stat Cat Scan 05/30/20 07:[address] lumbar spine wo con Stat Cat Scan 05/30/20 06:[address] thoracic spine wo con Stat Cat Scan 05/30/20 06:28 Taken XR chest 2V Stat Exams 05/30/20 06:28 Taken Troponin I Q3H Lab 05/30/20 09:45 Ordered Troponin I Q3H Lab 05/30/20 12:45 Ordered - Radiology Data #1 Image(s): Chest Image Reviewed: Yes I reviewed the patient's radiology image Preliminary Findings: Abnormal (mass noted) - CT Data CT Scan: Abdomen, Pel
[2020-05-30 08:09] LABS: Alanine Aminotransferase 18 U/L (12-78); Albumin Level 4.1 g/dl (3.5-5.0); Alkaline Phosphatase 62 U/L (38-126); Aspartate Amino Transferase 59 U/L (14-36); Bilirubin,Direct 0.4 mg/dl (0.0-0.4); Bilirubin,Indirect 0.1 mg/dL (0.0-0.9); Bilirubin,Total 0.5 mg/dl (0.2-1.3); Bilirubin,Unconjugated 0.1 mg/dL (0.0-1.1); Total Protein,Serum 7.9 g/dl (6.3-8.2)
[2020-05-30 09:24] VITALS: BP 142/42; PULSE 74; RESP 16; TEMP 36.8; O2SAT 98
== END 2020-05-30 09:33 | disposition home or self-care (01) ==
PROVIDERS: Emergency Provider Emergency Medicine; PCP Internal Medicine
DX: C34.90 Malignant neoplasm of unspecified part of unspecified bronchus or lung (principal); C78.7 Secondary malignant neoplasm of liver and intrahepatic bile duct; N28.9 Disorder of kidney and ureter, unspecified; Z88.0 Allergy status to penicillin; Z88.1 Allergy status to other antibiotic agents; Z88.8 Allergy status to other drugs, medicaments and biological substances; Z79.899 Other long term (current) drug therapy
CPT/HCPCS: 71046; 71250; 72128; 72131; 74176; 80048; 80076; 81001; 82150; 83690; 84484; 85007; 85025; 85651; 86140; 96374; 96375; 99283; J2405